=== PATIENT | male | born 1990 | race Caucasian/White ===

== ENCOUNTER → 2020-05-18 | Outpatient (CLI) | payer OTHER | END | disposition home or self-care (01) | LOC: LABWHC1 15:20 | PROVIDERS: ATTEND Internal Medicine | DX: Z53.9 Procedure and treatment not carried out, unspecified reason (principal) ==

== ENCOUNTER 2020-07-22 02:00 | Emergency (ER) | payer OTHER ==
[2020-07-22] MEDS ORDERED: ONDANSETRON 4 MG/2 ML VIAL IVP STA (02:22)
[2020-07-22] MEDS ORDERED: SODIUM CHLORIDE 0.9% 1,000 ML IV STA (02:22)
--- NOTE | 2020-07-22 02:23 | ED ---
Arrhythmia/Palpitations HPI - General Chief Complaint: Arrhythmia/Palpitations Stated Complaint: Chest pain Time Seen by Provider: 07/22/20 02:12 Source: patient, EMS Mode of arrival: EMS - History of Present Illness Initial Comments: This patient is a 30-year-old man who presents to be evaluated for constellation of symptoms that he awoke with tonight. Patient states that he felt like his usual self when he had gone to sleep tonight. The patient notes that he had been having a nightmare and woke with feeling of shortness of breath, nausea, and racing heart. He states that he has history of LVH and therefore felt he should be evaluated. Patient called for ambulance transport was given Zofran on the right here but states the nausea is coming back a little bit. Patient denies chest pain. He states that his breathing is improving but not quite back to normal yet. MD Complaint: palpitations -: minutes(s) Context: awoke with symptoms Associated Symptoms: shortness of breath, nausea/vomiting, anxiety - Related Data Previous Rx's Medication Instructions Recorded Ondansetron Odt [Zofran ODT] 4 mg PO Q8HR PRN #10 tab 07/22/20 Allergies Allergy/AdvReac Type Severity Reaction Status Date / Time No Known Allergies Allergy Verified 07/22/20 02:07 Review of Systems ROS Statement: Those systems with pertinent positive or pertinent negative responses have been documented in the HPI. ROS Other: All systems not noted in ROS Statement are negative. Constitutional: Denies: fever, chills, weakness Eyes: Denies: vision change Respiratory: Reports: as per HPI, dyspnea. Denies: cough Cardiovascular: Reports: palpitations. Denies: chest pain, orthopnea, edema, syncope Gastrointestinal: Reports: nausea. Denies: abdominal pain, vomiting, diarrhea Genitourinary: Denies: dysuria, hematuria Musculoskeletal: Denies: back pain Skin: Denies: rash Neurological: Denies: headache, weakness, numbness Psychiatric: Reports: anxiety Past Medical History Past Medical History: Hypertension, Supraventricular Tachycardia (SVT) Additional Past Medical History / Comment(s): Left ventricular hypertrophy History of Any Multi-Drug Resistant Organisms: None Reported Past Surgical History: Orthopedic Surgery Additional Past Surgical History / Comment(s): gastric sleeve Past Psychological History: Anxiety, Depression Smoking Status: Never smoker Past Alcohol Use History: Occasional Past Drug Use History: None Reported General Exam General appearance: alert, anxious Head exam: Present: atraumatic, normocephalic Eye exam: Present: normal appearance. Absent: scleral icterus, conjunctival injection ENT exam: Present: mucous membranes dry Neck exam: Present: normal inspection, full ROM Respiratory exam: Present: normal lung sounds bilaterally. Absent: respiratory distress, wheezes, rales, rhonchi, stridor Cardiovascular Exam: Present: regular rate, normal rhythm, normal heart sounds. Absent: systolic murmur, diastolic murmur, rubs, gallop GI/Abdominal exam: Present: soft. Absent: distended, tenderness, guarding, rebound, rigid, mass Extremities exam: Present: normal inspection, normal capillary refill. Absent: pedal edema, calf tenderness Back exam: Present: normal inspection. Absent: CVA tenderness (R), CVA tenderness (L) Neurological exam: Present: alert Skin exam: Present: warm, dry, intact, normal color. Absent: rash Course Vital Signs 07/22/20 07/22/20 02:01 03:00 Temperature 97.6 F Pulse Rate 67 61 Respiratory 18 19 Rate Blood Pressure 179/117 132/104 O2 Sat by Pulse 100 98 Oximetry EKG Findings - EKG Results: EKG: interpreted by AMEYA CHRISTIAN, sinus rhythm (Rate 61 bpm), normal axis, normal QRS, normal ST/T, no acute changes - KS, Pacemaker, Normal: Normal tracing: normal tracing Medical Decision Making - Lab Data Result diagrams: 07/22/20 02:34 07/22/20 02:34 Lab Results 07/22/20 07/22/20 07/22/20 Range/Units 02:34 02:34 02:34 WBC 8.1 (3.8-10.6) k/uL RBC 6.18 H (4.30-5.90) m/uL Hgb 15.6 (13.0-17.5) gm/dL Hct 48.8 (39.0-53.0) % MCV 79.0 L (80.0-100.0) fL MCH 25.2 (25.0-35.0) pg MCHC 31.9 (31.0-37.0) g/dL RDW 13.7 (11.5-15.5) % Plt Count 345 (150-450) k/uL Neutrophils % 54 % Lymphocytes % 33 % Monocytes % 6 % Eosinophils % 3 % Basophils % 1 % Neutrophils # 4.3 (1.3-7.7) k/uL Lymphocytes # 2.7 (1.0-4.8) k/uL Monocytes # 0.5 (0-1.0) k/uL Eosinophils # 0.3 (0-0.7) k/uL Basophils # 0.1 (0-0.2) k/uL PT 10.5 (9.0-12.0) sec INR 1.0 (<1.2) APTT 25.0 (22.0-30.0) sec D-Dimer 0.19 (<0.60) mg/L FEU Sodium 138 (137-145) mmol/L Potassium 3.7 (3.5-5.1) mmol/L Chloride 103 (98-107) mmol/L Carbon Dioxide 27 (22-30) mmol/L Anion Gap 8 mmol/L BUN 19 (9-20) mg/dL Creatinine 1.16 (0.66-1.25) mg/dL Est GFR (CKD-EPI)AfAm >90 (>60 ml/min/1.73 sqM) Est GFR (CKD-EPI)NonAf 85 (>60 ml/min/1.73 sqM) Glucose 142 H (74-99) mg/dL Calcium 9.2 (8.4-10.2) mg/dL Magnesium 2.0 (1.6-2.3) mg/dL Total Bilirubin 0.7 (0.2-1.3) mg/dL AST 34 (17-59) U/L ALT 25 (4-49) U/L Alkaline Phosphatase 62 (38-126) U/L Troponin I (0.000-0.034) ng/mL Total Protein 7.1 (6.3-8.2) g/dL Albumin 4.4 (3.5-5.0) g/dL TSH 1.880 (0.465-4.680) mIU/L 07/22/20 Range/Units 02:34 WBC (3.8-10.6) k/uL RBC (4.30-5.90) m/uL Hgb (13.0-17.5) gm/dL Hct (39.0-53.0) % MCV (80.0-100.0) fL MCH (25.0-35.0) pg MCHC (31.0-37.0) g/dL RDW (11.5-15.5) % Plt Count (150-450) k/uL Neutrophils % % Lymphocytes % % Monocytes % % Eosinophils % % Basophils % % Neutrophils # (1.3-7.7) k/uL Lymphocytes # (1.0-4.8) k/uL Monocytes # (0-1.0) k/uL Eosinophils # (0-0.7) k/uL Basophils # (0-0.2) k/uL PT (9.0-12.0) sec INR (<1.2) APTT (22.0-30.0) sec D-Dimer (<0.60) mg/L FEU Sodium (137-145) mmol/L Potassium (3.5-5.1) mmol/L Chloride (98-107) mmol/L Carbon Dioxide (22-30) mmol/L Anion Gap mmol/L BUN (9-20) mg/dL Creatinine (0.66-1.25) mg/dL Est GFR (CKD-EPI)AfAm (>60 ml/min/1.73 sqM) Est GFR (CKD-EPI)NonAf (>60 ml/min/1.73 sqM) Glucose (74-99) mg/dL Calcium (8.4-10.2) mg/dL Magnesium (1.6-2.3) mg/dL Total Bilirubin (0.2-1.3) mg/dL AST (17-59) U/L ALT (4-49) U/L Alkaline Phosphatase (38-126) U/L Troponin I <0.012 (0.000-0.034) ng/mL Total Protein (6.3-8.2) g/dL Albumin (3.5-5.0) g/dL TSH (0.465-4.680) mIU/L Disposition Clinical Impression: Palpitations Disposition: HOME SELF-CARE Condition: Good Instructions (If sedation given, give patient instructions): Heart Palpitations (ED) Prescriptions: Ondansetron Odt [Zofran ODT] 4 mg PO Q8HR PRN #10 tab PRN Reason: Nausea Is patient prescribed a controlled substance at d/c from ED?: No Referrals: None,Stated [Primary Care Provider] - 1-2 days Peña Singh MD [STAFF PHYSICIAN] - 1-2 days
[2020-07-22] MEDS ORDERED: LORazepam 2 MG/ML INJ IV STA (02:28)
[2020-07-22] MEDS ORDERED: LABETALOL 5 MG/ML VIAL MDV IVP STA (02:28)
[2020-07-22 03:10] LABS: Basophils # (A) 0.1 k/uL (0-0.2); Basophils % (A) 1 %; Eosinophils # (A) 0.3 k/uL (0-0.7); Eosinophils % (A) 3 %; HCT 48.8 % (39.0-53.0); HGB 15.6 gm/dL (13.0-17.5); Lymphocytes # (A) 2.7 k/uL (1.0-4.8); Lymphocytes % (A) 33 %; MCH 25.2 pg (25.0-35.0); MCHC 31.9 g/dL (31.0-37.0); Mean Platelet Volume 6.4; Monocytes # (A) 0.5 k/uL (0-1.0); Monocytes % (A) 6 %; Neutrophils # (A) 4.3 k/uL (1.3-7.7); Neutrophils % (A) 54 %; Platelet Count 345 k/uL (150-450); RBC 6.18 m/uL (4.30-5.90); RDW 13.7 % (11.5-15.5); WBC 8.1 k/uL (3.8-10.6)
--- NOTE | 2020-07-22 03:30 | XR ---
EXAMINATION TYPE: XR chest 2V DATE OF EXAM: 07/22/2020 COMPARISON: NONE HISTORY: Dysrhythmia TECHNIQUE: FINDINGS: Heart is normal. Lungs are clear. Diaphragm is normal. Bony thorax appears normal. There ar e chest leads. Pulmonary vascularity is normal. IMPRESSION: Normal chest
[2020-07-22 03:31] LABS: D-Dimer 0.19 mg/L FEU (<0.60); Prothrombin Time 10.5 sec (9.0-12.0)
[2020-07-22 03:35] LABS: ALT 25 U/L (4-49); AST 34 U/L (17-59); African American GFR (CKD) >90 (>60 ml/min/1.73 sqM); Albumin 4.4 g/dL (3.5-5.0); Alkaline Phosphatase 62 U/L (38-126); Anion Gap 8 mmol/L; Blood Urea Nitrogen 19 mg/dL (9-20); Calcium 9.2 mg/dL (8.4-10.2); Carbon Dioxide 27 mmol/L (22-30); Chloride 103 mmol/L (98-107); Glucose 142 mg/dL (74-99); Non-African American GFR(CKD) 85 (>60 ml/min/1.73 sqM); Potassium 3.7 mmol/L (3.5-5.1); Sodium 138 mmol/L (137-145); Total Bilirubin 0.7 mg/dL (0.2-1.3); Total Protein 7.1 g/dL (6.3-8.2)
[2020-07-22] MEDS ORDERED: ONDANSETRON 4 MG ODT STARTER PACK 2 TAB BTL PO STA (04:40)
[2020-07-22 05:09] VITALS: RESP 18
[2020-07-22 05:13] VITALS: BP 126/82; PULSE 67; TEMP 98.1
== END 2020-07-22 04:54 | disposition home or self-care (01) ==
LOC: EC 02:00
DX: R00.2 Palpitations (principal); R06.02 Shortness of breath; R11.0 Nausea
CPT/HCPCS: 36415; 71046; 80053; 83735; 84443; 84484; 85025; 85379; 85610; 85730; 93005; 96361; 96374; 96375; 99285

== ENCOUNTER → 2020-08-18 | Outpatient (CLI) | payer OTHER ==
--- NOTE | 2020-08-18 13:10 | US ---
EXAMINATION TYPE: US abdomen complete DATE OF EXAM: 08/18/2020 COMPARISON: NONE CLINICAL HISTORY: I10 Essential hypertension. EXAM MEASUREMENTS: Liver Length: 15.9 cm Gallbladder Wall: 0.2 cm CBD: 0.4 cm Spleen: 11.0 cm Right Kidney: 10.4 x 4.0 x 5.1 cm Left Kidney: 9.4 x 5.4 x 5.9 cm Pancreas: Normal Liver: Normal Gallbladder: Normal Dry Transfer Worker reports negative sonographic Fermin sign CBD: Normal Spleen: Normal Right Kidney: Normal Left Kidney: No hydronephrosis. 4 mm nonshadowing echogenic foci Upper IVC: Normal Abd Aorta: Normal IMPRESSION: 1. Left kidney 4 mm focus may represent echogenic renal sinus fat versus nonshadowing calculus. No hy dronephrosis. 2. Otherwise unremarkable abdominal ultrasound.
== END | disposition home or self-care (01) ==
LOC: RADUSWWP 08:59
PROVIDERS: ATTEND Family Medicine
DX: R93.422 Abnormal radiologic findings on diagnostic imaging of left kidney (principal); I10 Essential (primary) hypertension
CPT/HCPCS: 76700

== ENCOUNTER 2020-10-20 06:37 | Emergency (ER) | payer OTHER ==
[2020-10-20 06:46] VITALS: TEMP 98.7
--- NOTE | 2020-10-20 06:59 | ED ---
General Adult HPI - General Chief complaint: Arrhythmia/Palpitations Stated complaint: Dizziness Time Seen by Provider: 10/20/20 06:46 Source: EMS, RN notes reviewed Mode of arrival: EMS Limitations: no limitations - History of Present Illness Initial comments: 30-year-old male with a past medical history of HTN, SVT, LVH presents to the emergency room for possible SVT episode. Patient reports he was just about to fall asleep and he felt himself not breathing and jumped up. Patient states his heart started to race and he felt a little short of breath. Patient states his head felt tight. He states he has felt this way many times before and cont ributes this to his SVT. However this lasted longer than normal. He called 911. Once the ambulance arrived he started to feel better and he felt his heart rate go down. Patient feels much better at this time.Patient has no other complaints at this time including shortness of breath, chest pain, abdominal pain, nausea or vomiting, or visual changes. - Related Data Previous Rx's Medication Instructions Recorded Ondansetron Odt [Zofran ODT] 4 mg PO Q8HR PRN #10 tab 07/22/20 Allergies Allergy/AdvReac Type Severity Reaction Status Date / Time No Known Allergies Allergy Verified 07/22/20 02:07 Review of Systems ROS Statement: Those systems with pertinent positive or pertinent negative responses have been documented in the HPI. ROS Other: All systems not noted in ROS Statement are negative. Past Medical History Past Medical History: Hypertension, Sleep Apnea/CPAP/BIPAP, Supraventricular Tachycardia (SVT) Additional Past Medical History / Comment(s): Left ventricular hypertrophy History of Any Multi-Drug Resistant Organisms: None Reported Past Surgical History: Orthopedic Surgery Additional Past Surgical History / Comment(s): gastric sleeve Past Psychological History: Anxiety, Depression Smoking Status: Never smoker Past Alcohol Use History: Occasional Past Drug Use History: None Reported General Exam Limitations: no limitations General appearance: alert, in no apparent distress Head exam: Present: atraumatic, normocephalic, normal inspection Eye exam: Present: normal appearance, PERRL, EOMI. Absent: scleral icterus, conjunctival injection, periorbital swelling ENT exam: Present: normal exam, mucous membranes moist Neck exam: Present: normal inspection, full ROM. Absent: tenderness, meningismus, lymphadenopathy Respiratory exam: Present: normal lung sounds bilaterally. Absent: respiratory distress, wheezes, rales, rhonchi, stridor Cardiovascular Exam: Present: regular rate, normal rhythm, normal heart sounds. Absent: systolic murmur, diastolic murmur, rubs, gallop, clicks GI/Abdominal exam: Present: soft, normal bowel sounds. Absent: distended, tenderness, guarding, rebound, rigid Neurological exam: Present: alert Course Vital Signs 10/20/20 06:39 Temperature 98.7 F Pulse Rate 70 Respiratory 19 Rate Blood Pressure 145/88 O2 Sat by Pulse 100 Oximetry EKG Findings - EKG Comments: EKG Findings:: Normal sinus rhythm, ventricular rate 63, ID interval 180, QTC 433 Medical Decision Making - Medical Decision Making Vitals are stable. Heart rate is normal mostly in the 60s. CBC CMP unremarkable. Magnesium 2.1. The patient, he is feeling at baseline. Patient will be discharged home to follow up with his doctor. He will continue taking his medication for SVT. He will return here for any worsening symptoms. I discussed this case with attending Dr. Robledo who agrees with this assessment and treatment plan. - Lab Data Result diagrams: 10/20/20 06:59 10/20/20 06:58 Lab Results 10/20/20 10/20/20 Range/Units 06:58 06:59 WBC 4.6 (3.8-10.6) k/uL RBC 5.16 (4.30-5.90) m/uL Hgb 13.9 (13.0-17.5) gm/dL Hct 40.8 (39.0-53.0) % MCV 79.0 L (80.0-100.0) fL MCH 27.0 (25.0-35.0) pg MCHC 34.2 (31.0-37.0) g/dL RDW 13.2 (11.5-15.5) % Plt Count 233 (150-450) k/uL MPV 6.3 Neutrophils % 50 % Lymphocytes % 37 % Monocytes % 5 % Eosinophils % 4 % Basophils % 1 % Neutrophils # 2.3 (1.3-7.7) k/uL Lymphocytes # 1.7 (1.0-4.8) k/uL Monocytes # 0.3 (0-1.0) k/uL Eosinophils # 0.2 (0-0.7) k/uL Basophils # 0.1 (0-0.2) k/uL Sodium 138 (137-145) mmol/L Potassium 3.6 (3.5-5.1) mmol/L Chloride 105 (98-107) mmol/L Carbon Dioxide 29 (22-30) mmol/L Anion Gap 4 mmol/L BUN 19 (9-20) mg/dL Creatinine 1.03 (0.66-1.25) mg/dL Est GFR (CKD-EPI)AfAm >90 (>60 ml/min/1.73 sqM) Est GFR (CKD-EPI)NonAf >90 (>60 ml/min/1.73 sqM) Glucose 136 H (74-99) mg/dL Calcium 8.9 (8.4-10.2) mg/dL Magnesium 2.1 (1.6-2.3) mg/dL Disposition Clinical Impression: Palpitations Disposition: HOME SELF-CARE Condition: Good Instructions (If sedation given, give patient instructions): Heart Palpitations (ED) Additional Instructions: Please follow up with primary care in 1-2 days. Continue to take your medications. If you have any worsening symptoms return to the emergency room. Is patient prescribed a controlled substance at d/c from ED?: No Referrals: Jael Paris MD [Primary Care Provider] - 1-2 days Time of Disposition: 08:07
[2020-10-20 07:09] LABS: Basophils # (A) 0.1 k/uL (0-0.2); Basophils % (A) 1 %; Eosinophils # (A) 0.2 k/uL (0-0.7); Eosinophils % (A) 4 %; HCT 40.8 % (39.0-53.0); HGB 13.9 gm/dL (13.0-17.5); Lymphocytes # (A) 1.7 k/uL (1.0-4.8); Lymphocytes % (A) 37 %; MCHC 34.2 g/dL (31.0-37.0); Mean Platelet Volume 6.3; Monocytes # (A) 0.3 k/uL (0-1.0); Monocytes % (A) 5 %; Neutrophils # (A) 2.3 k/uL (1.3-7.7); Neutrophils % (A) 50 %; Platelet Count 233 k/uL (150-450); RBC 5.16 m/uL (4.30-5.90); RDW 13.2 % (11.5-15.5); WBC 4.6 k/uL (3.8-10.6)
[2020-10-20 07:22] LABS: African American GFR (CKD) >90 (>60 ml/min/1.73 sqM); Anion Gap 4 mmol/L; Blood Urea Nitrogen 19 mg/dL (9-20); Calcium 8.9 mg/dL (8.4-10.2); Carbon Dioxide 29 mmol/L (22-30); Chloride 105 mmol/L (98-107); Glucose 136 mg/dL (74-99); Magnesium 2.1 mg/dL (1.6-2.3); Non-African American GFR(CKD) >90 (>60 ml/min/1.73 sqM); Potassium 3.6 mmol/L (3.5-5.1); Sodium 138 mmol/L (137-145)
--- NOTE | 2020-10-20 07:53 | XR ---
EXAMINATION TYPE: XR chest 1V portable DATE OF EXAM: 10/20/2020 COMPARISON: 07/22/2020 INDICATION: Cough TECHNIQUE: Single frontal view of the chest is obtained. FINDINGS: The heart size is normal. The pulmonary vasculature is normal. The lungs are clear. IMPRESSION: 1. No acute pulmonary process.
[2020-10-20 08:10] VITALS: BP 126/87; PULSE 65; RESP 18
== END 2020-10-20 08:14 | disposition home or self-care (01) ==
LOC: EC 06:37
DX: R00.2 Palpitations (principal); R06.02 Shortness of breath; G47.33 Obstructive sleep apnea (adult) (pediatric); Z99.89 Dependence on other enabling machines and devices
CPT/HCPCS: 36415; 71045; 80048; 83735; 85025; 93005; 99285

== ENCOUNTER 2020-10-21 15:21 | Emergency (ER) | payer OTHER ==
[2020-10-21 15:25] VITALS: BP 148/85; PULSE 60; RESP 18; TEMP 98
--- NOTE | 2020-10-21 16:30 | ED ---
Recheck HPI - General Chief Complaint: Recheck/Abnormal Lab/Rx Stated Complaint: refill bp medication Time Seen by Provider: 10/21/20 15:28 Source: patient Mode of arrival: ambulatory Limitations: no limitations - History of Present Illness Initial Comments: 30yo male with history of HTN, ventricular hypertrophy,SVT, RAMÓN presenting today for cc of out of medications pt states that his refill was done though delivery but he has been out for 3 days. pt states that he was here yesterdya for palpatations and thinks its secondary to being out of the medications for so long. pt states that he accidentally picked option for [facility] to delive the new RX and it wont arrive for another week. pt states he needs all 4 of his heart medications prescribed. pt states its making him anxious to not have the medications. remaining ROS (-). - Related Data Home Medications Medication Instructions Recorded Confirmed Losartan Potassium [Cozaar] 100 mg PO DAILY 10/21/20 10/21/20 Metoprolol Tartrate [Lopressor] 100 mg PO BID-W/MEALS 10/21/20 10/21/20 dilTIAZem HCL [Diltiazem HCl] 60 mg PO DAILY 10/21/20 10/21/20 hydroCHLOROthiazide [Hydrodiuril] 25 mg PO DAILY 10/21/20 10/21/20 Previous Rx's Medication Instructions Recorded Hydrochlorothiazide 25 mg PO DAILY 7 Days #14 capsule 10/21/20 [hydroCHLOROthiazide] Losartan Potassium [Cozaar] 100 mg PO DAILY 7 Days #7 tab 10/21/20 Metoprolol Tartrate [Lopressor] 100 mg PO BID-W/MEALS 7 Days #14 10/21/20 tablet dilTIAZem HCL [Diltiazem HCl] 60 mg PO DAILY 7 Days #7 tab 10/21/20 Allergies Allergy/AdvReac Type Severity Reaction Status Date / Time No Known Allergies Allergy Verified 10/21/20 16:11 Review of Systems ROS Statement: Those systems with pertinent positive or pertinent negative responses have been documented in the HPI. ROS Other: All systems not noted in ROS Statement are negative. Past Medical History Past Medical History: Hypertension, Sleep Apnea/CPAP/BIPAP, Supraventricular Tachycardia (SVT) Additional Past Medical History / Comment(s): Left ventricular hypertrophy History of Any Multi-Drug Resistant Organisms: None Reported Past Surgical History: Orthopedic Surgery Additional Past Surgical History / Comment(s): gastric sleeve Past Psychological History: Anxiety, Depression Smoking Status: Never smoker Past Alcohol Use History: Occasional Past Drug Use History: None Reported General Exam - General Exam Comments Initial Comments: General: The patient is awake and alert, in no distress, and does not appear acutely ill. Eye: Pupils are equal, round and reactive to light, extra-ocular movements are intact. No nystagmus. There is normal conjunctiva bilaterally. No signs of icterus. Cardiovascular: There is a regular rate and rhythm. No murmur, rub or gallop is appreciated. Respiratory: Lungs are clear to auscultation, respirations are non-labored, breath sounds are equal. No wheezes, stridor, rales, or rhonchi. Musculoskeletal: Normal ROM, no tenderness. Strength 5/5. Sensation intact. Radial and DP pulses equal bilaterally 2+. Neurological: A&O x 3. CN II-XII intact grossly, There are no obvious motor or sensory deficits. Coordination appears grossly intact. Speech is normal. Skin: Skin is warm and dry and no rashes or lesions are noted. Psychiatric: Cooperative, appropriate mood & affect, normal judgment. Limitations: no limitations Course Vital Signs 10/21/20 15:22 Temperature 98 F Pulse Rate 60 Respiratory 18 Rate Blood Pressure 148/85 O2 Sat by Pulse 99 Oximetry Medical Decision Making - Medical Decision Making No complaints. Here for medication refill, BP elevated moderate. patient has medicine consult by registered pharmacy technician. pt medications refilled x1 week. discussed case with Dr. Cardenas who is agreeable to care plan and discharge. Disposition Clinical Impression: Medication refill Disposition: HOME SELF-CARE Condition: Good Instructions (If sedation given, give patient instructions): Medicine Refill (ED) Additional Instructions: Please use medication as discussed. Please follow-up with family doctor in the next 2 days.. Please return to emergency room if the symptoms increase or worsen or for any other concerns. Prescriptions: Losartan Potassium [Cozaar] 100 mg PO DAILY 7 Days #7 tab dilTIAZem HCL [Diltiazem HCl] 60 mg PO DAILY 7 Days #7 tab Hydrochlorothiazide [hydroCHLOROthiazide] 25 mg PO DAILY 7 Days #14 capsule Metoprolol Tartrate [Lopressor] 100 mg PO BID-W/MEALS 7 Days #14 tablet Is patient prescribed a controlled substance at d/c from ED?: No Referrals: Jael Paris MD [Primary Care Provider] - 1-2 days Time of Disposition: 16:30
== END 2020-10-21 16:21 | disposition home or self-care (01) ==
LOC: EC 15:21
DX: Z76.0 Encounter for issue of repeat prescription (principal); I10 Essential (primary) hypertension; G47.33 Obstructive sleep apnea (adult) (pediatric); Z99.89 Dependence on other enabling machines and devices; Z79.899 Other long term (current) drug therapy
CPT/HCPCS: 99281

== ENCOUNTER 2021-02-25 01:01 | Emergency (ER) | payer OTHER ==
[2021-02-25] MEDS ORDERED: SODIUM CHLORIDE 0.9% 1,000 ML IV STA (01:30)
[2021-02-25 01:50] LABS: Basophils # (A) 0.1 k/uL (0-0.2); Basophils % (A) 1 %; Eosinophils # (A) 0.3 k/uL (0-0.7); Eosinophils % (A) 4 %; HCT 47.5 % (39.0-53.0); Lymphocytes # (A) 2.6 k/uL (1.0-4.8); Lymphocytes % (A) 36 %; MCH 26.6 pg (25.0-35.0); MCHC 33.6 g/dL (31.0-37.0); MCV 79.3 fL (80.0-100.0); Mean Platelet Volume 6.1; Monocytes # (A) 0.5 k/uL (0-1.0); Monocytes % (A) 8 %; Neutrophils # (A) 3.6 k/uL (1.3-7.7); Neutrophils % (A) 50 %; Platelet Count 280 k/uL (150-450); RDW 13.3 % (11.5-15.5); WBC 7.2 k/uL (3.8-10.6)
--- NOTE | 2021-02-25 01:51 | ED ---
Arrhythmia/Palpitations HPI - General Chief Complaint: Arrhythmia/Palpitations Stated Complaint: Chest Pain, SOB Time Seen by Provider: 02/25/21 01:16 Source: patient Mode of arrival: ambulatory Limitations: no limitations - History of Present Illness Initial Comments: 30 year-old male patient with past history significant for SVT and hypertension currently maintained on cardizem, metoprolol, lisinopril, and hydrochlorothiazide presents to the emergency department today for evaluation of palpitations and shortness of breath. Patient states he has been waking up from sleep, after having what he believes is an apneic episode, his heart will be racing. States it feels like he has a flopping in his chest and it feels like his heart wants to "give out". States he feels like his breathing is more shallow and he has a "feeling of impending doom". Patient states this occurred tonight, once two nights ago, and again two weeks ago. He does not currently follow with a home health care worker. Dr. Jael Paris manages his medications. Patient denies any recent rash, fever, chills, cough, abdominal pain, nausea, vomiting, diarrhea, constipation, back pain, numbness, tingling, dizziness, weakness, hematuria, dysuria, urinary urgency, urinary frequency, headache, visual changes, or any other complaints. - Related Data Home Medications Medication Instructions Recorded Confirmed Losartan Potassium [Cozaar] 100 mg PO DAILY 10/21/20 10/21/20 Metoprolol Tartrate [Lopressor] 100 mg PO BID-W/MEALS 10/21/20 10/21/20 dilTIAZem HCL [Diltiazem HCl] 60 mg PO DAILY 10/21/20 10/21/20 hydroCHLOROthiazide [Hydrodiuril] 25 mg PO DAILY 10/21/20 10/21/20 Previous Rx's Medication Instructions Recorded Hydrochlorothiazide 25 mg PO DAILY 7 Days #14 capsule 10/21/20 [hydroCHLOROthiazide] Losartan Potassium [Cozaar] 100 mg PO DAILY 7 Days #7 tab 10/21/20 Metoprolol Tartrate [Lopressor] 100 mg PO BID-W/MEALS 7 Days #14 10/21/20 tablet dilTIAZem HCL [Diltiazem HCl] 60 mg PO DAILY 7 Days #7 tab 10/21/20 Allergies Allergy/AdvReac Type Severity Reaction Status Date / Time No Known Allergies Allergy Verified 02/25/21 01:10 Review of Systems ROS Statement: Those systems with pertinent positive or pertinent negative responses have been documented in the HPI. ROS Other: All systems not noted in ROS Statement are negative. Past Medical History Past Medical History: Hypertension, Sleep Apnea/CPAP/BIPAP, Supraventricular Tachycardia (SVT) Additional Past Medical History / Comment(s): Left ventricular hypertrophy History of Any Multi-Drug Resistant Organisms: None Reported Past Surgical History: Orthopedic Surgery Additional Past Surgical History / Comment(s): gastric sleeve 2018 Past Psychological History: Anxiety, Depression Smoking Status: Never smoker Past Alcohol Use History: Occasional Past Drug Use History: None Reported General Exam Limitations: no limitations General appearance: alert, in no apparent distress, other (Physical well- developed, well-nourished adult male patient in no acute distress. Vital signs upon presentation temperature 98.3F, pulse 66, respirations 18, blood pressure 135/85, pulse ox 100% on room air.) Eye exam: Present: normal appearance, PERRL, EOMI. Absent: scleral icterus, conjunctival injection, periorbital swelling ENT exam: Present: normal exam, normal oropharynx Respiratory exam: Present: normal lung sounds bilaterally. Absent: respiratory distress, wheezes, rales, rhonchi, stridor Cardiovascular Exam: Present: regular rate, normal rhythm, normal heart sounds. Absent: systolic murmur, diastolic murmur, rubs, gallop, clicks GI/Abdominal exam: Present: soft, normal bowel sounds. Absent: distended, tenderness, guarding, rebound, rigid Neurological exam: Present: alert, oriented X3, CN II-XII intact Psychiatric exam: Present: normal affect, normal mood Skin exam: Present: warm, dry, intact, normal color. Absent: rash Course Vital Signs 02/25/21 02/25/21 01:04 02:10 Temperature 98.3 F Pulse Rate 66 57 L Respiratory 18 16 Rate Blood Pressure 135/85 130/84 O2 Sat by Pulse 100 97 Oximetry EKG Findings - EKG Comments: EKG Findings:: EKG obtained at 11 08 shows sinus bradycardia ventricular 58, ME interval 202, QRS duration 100, QTC 416, QTC 408. No evidence of ST elevation or depression. Medical Decision Making - Medical Decision Making 30 year-old male patient with history of hypertension and SVT presents to the emergency department for evaluation of palpitations and shortness of breath. Physical examination is unremarkable. Patient remains sinus bradycardia on the heart monitor. EKG showed sinus bradycardia. He did have early repoll, troponin is negative. Labs reviewed and are unremarkable. Upon reevaluation is resting comfortably in bed, denies any further episodes. He'll be discharged follow-up with his primary care physician on Saturday. He is urged to discuss sleep study, heart monitoring, and follow up with cardiology. Return parameters discussed in detail. He verbalizes understanding and agrees with this plan. Case discussed with my attending Dr. Brewer. - Lab Data Result diagrams: 02/25/21 01:35 02/25/21 01:35 Lab Results 02/25/21 02/25/21 02/25/21 Range/Units 01:35 01:35 01:35 WBC 7.2 (3.8-10.6) k/uL RBC 6.00 H (4.30-5.90) m/uL Hgb 16.0 (13.0-17.5) gm/dL Hct 47.5 (39.0-53.0) % MCV 79.3 L (80.0-100.0) fL MCH 26.6 (25.0-35.0) pg MCHC 33.6 (31.0-37.0) g/dL RDW 13.3 (11.5-15.5) % Plt Count 280 (150-450) k/uL MPV 6.1 Neutrophils % 50 % Lymphocytes % 36 % Monocytes % 8 % Eosinophils % 4 % Basophils % 1 % Neutrophils # 3.6 (1.3-7.7) k/uL Lymphocytes # 2.6 (1.0-4.8) k/uL Monocytes # 0.5 (0-1.0) k/uL Eosinophils # 0.3 (0-0.7) k/uL Basophils # 0.1 (0-0.2) k/uL PT 11.0 (9.0-12.0) sec INR 1.0 (<1.2) APTT 23.8 (22.0-30.0) sec Sodium 140 (137-145) mmol/L Potassium 3.8 (3.5-5.1) mmol/L Chloride 103 (98-107) mmol/L Carbon Dioxide 29 (22-30) mmol/L Anion Gap 8 mmol/L BUN 19 (9-20) mg/dL Creatinine 1.23 (0.66-1.25) mg/dL Est GFR (CKD-EPI)AfAm >90 (>60 ml/min/1.73 sqM) Est GFR (CKD-EPI)NonAf 79 (>60 ml/min/1.73 sqM) Glucose 105 H (74-99) mg/dL Calcium 9.5 (8.4-10.2) mg/dL Magnesium 2.0 (1.6-2.3) mg/dL Total Bilirubin 0.8 (0.2-1.3) mg/dL AST 28 (17-59) U/L ALT 21 (4-49) U/L Alkaline Phosphatase 54 (38-126) U/L Troponin I (0.000-0.034) ng/mL Total Protein 7.0 (6.3-8.2) g/dL Albumin 4.3 (3.5-5.0) g/dL TSH 2.350 (0.465-4.680) mIU/L 02/25/21 Range/Units 01:35 WBC (3.8-10.6) k/uL RBC (4.30-5.90) m/uL Hgb (13.0-17.5) gm/dL Hct (39.0-53.0) % MCV (80.0-100.0) fL MCH (25.0-35.0) pg MCHC (31.0-37.0) g/dL RDW (11.5-15.5) % Plt Count (150-450) k/uL MPV Neutrophils % % Lymphocytes % % Monocytes % % Eosinophils % % Basophils % % Neutrophils # (1.3-7.7) k/uL Lymphocytes # (1.0-4.8) k/uL Monocytes # (0-1.0) k/uL Eosinophils # (0-0.7) k/uL Basophils # (0-0.2) k/uL PT (9.0-12.0) sec INR (<1.2) APTT (22.0-30.0) sec Sodium (137-145) mmol/L Potassium (3.5-5.1) mmol/L Chloride (98-107) mmol/L Carbon Dioxide (22-30) mmol/L Anion Gap mmol/L BUN (9-20) mg/dL Creatinine (0.66-1.25) mg/dL Est GFR (CKD-EPI)AfAm (>60 ml/min/1.73 sqM) Est GFR (CKD-EPI)NonAf (>60 ml/min/1.73 sqM) Glucose (74-99) mg/dL Calcium (8.4-10.2) mg/dL Magnesium (1.6-2.3) mg/dL Total Bilirubin (0.2-1.3) mg/dL AST (17-59) U/L ALT (4-49) U/L Alkaline Phosphatase (38-126) U/L Troponin I <0.012 (0.000-0.034) ng/mL Total Protein (6.3-8.2) g/dL Albumin (3.5-5.0) g/dL TSH (0.465-4.680) mIU/L - Radiology Data Radiology results: report reviewed, image reviewed Two-view x-ray of the chest is obtained. Report was reviewed in its entirety. Impression by Dr. Vasquez shows no acute findings show substantial change. Disposition Clinical Impression: Palpitations Disposition: HOME SELF-CARE Condition: Good Instructions (If sedation given, give patient instructions): Heart Palpitations (ED) Additional Instructions: Follow up with your Primary Care Physician on Saturday. Discuss sleep study, heart monitor, and referral to cardiology. Return to the emergency department for any new, worsening, or concerning symptoms. Is patient prescribed a controlled substance at d/c from ED?: No Referrals: Jael Paris MD [Primary Care Provider] - 1-2 days Peña Singh MD [STAFF PHYSICIAN] - 1-2 days Time of Disposition: 02:58
--- NOTE | 2021-02-25 01:53 | XR ---
EXAM: XR Chest, 2 Views CLINICAL HISTORY: dysrhythmia TECHNIQUE: Frontal and lateral views of the chest. COMPARISON: 10/20/20 FINDINGS: Lungs: Clear. Pleural space: Unremarkable. No pneumothorax. Heart: Unremarkable. No cardiomegaly. Mediastinum: Prominent main pulmonary artery contour, may suggest pulmonary hypertension. Bones/joints: No acute findings. IMPRESSION: No acute findings or substantial change.
[2021-02-25 01:59] LABS: ALT 21 U/L (4-49); AST 28 U/L (17-59); African American GFR (CKD) >90 (>60 ml/min/1.73 sqM); Albumin 4.3 g/dL (3.5-5.0); Alkaline Phosphatase 54 U/L (38-126); Anion Gap 8 mmol/L; Blood Urea Nitrogen 19 mg/dL (9-20); Calcium 9.5 mg/dL (8.4-10.2); Carbon Dioxide 29 mmol/L (22-30); Chloride 103 mmol/L (98-107); Glucose 105 mg/dL (74-99); Non-African American GFR(CKD) 79 (>60 ml/min/1.73 sqM); Potassium 3.8 mmol/L (3.5-5.1); Sodium 140 mmol/L (137-145); Total Bilirubin 0.8 mg/dL (0.2-1.3)
[2021-02-25 02:00] LABS: Partial Thromboplastin Time 23.8 sec (22.0-30.0)
[2021-02-25 02:11] VITALS: PULSE 57
[2021-02-25 03:11] VITALS: BP 133/88; RESP 18; TEMP 97.4
== END 2021-02-25 03:11 | disposition home or self-care (01) ==
LOC: EC 01:01
DX: R00.2 Palpitations (principal); R06.02 Shortness of breath; R07.9 Chest pain, unspecified; I11.9 Hypertensive heart disease without heart failure; G47.30 Sleep apnea, unspecified; F41.9 Anxiety disorder, unspecified; F32.9 Major depressive disorder, single episode, unspecified; Z79.899 Other long term (current) drug therapy
CPT/HCPCS: 36415; 71046; 80053; 83735; 84443; 84484; 85025; 85610; 85730; 93005; 96360; 99285

== ENCOUNTER 2021-04-27 00:14 | Emergency (ER) | payer OTHER ==
[2021-04-27 00:22] VITALS: BP 130/85; PULSE 88; RESP 18; TEMP 99.5
[2021-04-27] MEDS ORDERED: PROCHLORPERAZINE INJ 10 MG/2 ML VIAL IM STA (00:24)
[2021-04-27] MEDS ORDERED: ONDANSETRON 4 MG ODT STARTER PACK 2 TAB BTL PO STA (00:24)
[2021-04-27] MEDS ORDERED: SODIUM CHLORIDE 0.9% 1,000 ML IV STA ×2 (00:29)
[2021-04-27] MEDS ORDERED: SODIUM CHLORIDE 0.9% 500 ML 500 ML IV STA (00:29)
[2021-04-27] MEDS ORDERED: DIAZEPAM 5 MG/ML 2 ML INJ IVP STA (00:30)
[2021-04-27] MEDS ORDERED: PROCHLORPERAZINE INJ 10 MG/2 ML VIAL IVP STA (00:30)
[2021-04-27] MEDS ORDERED: PANTOPRAZOLE 40 MG/10 ML VIAL IVP STA (00:30)
--- NOTE | 2021-04-27 00:31 | ED ---
Nausea/Vomiting/Diarrhea HPI - General Chief complaint: Nausea/Vomiting/Diarrhea Stated complaint: Diarrhea Time Seen by Provider: 04/27/21 00:24 Source: patient Mode of arrival: ambulatory Limitations: no limitations - Related Data Home Medications Medication Instructions Recorded Confirmed Losartan Potassium [Cozaar] 100 mg PO DAILY 10/21/20 10/21/20 Metoprolol Tartrate [Lopressor] 100 mg PO BID-W/MEALS 10/21/20 10/21/20 dilTIAZem HCL [Diltiazem HCl] 60 mg PO DAILY 10/21/20 10/21/20 hydroCHLOROthiazide [Hydrodiuril] 25 mg PO DAILY 10/21/20 10/21/20 Previous Rx's Medication Instructions Recorded Hydrochlorothiazide 25 mg PO DAILY 7 Days #14 capsule 10/21/20 [hydroCHLOROthiazide] Losartan Potassium [Cozaar] 100 mg PO DAILY 7 Days #7 tab 10/21/20 Metoprolol Tartrate [Lopressor] 100 mg PO BID-W/MEALS 7 Days #14 10/21/20 tablet dilTIAZem HCL [Diltiazem HCl] 60 mg PO DAILY 7 Days #7 tab 10/21/20 Allergies Allergy/AdvReac Type Severity Reaction Status Date / Time No Known Allergies Allergy Verified 04/27/21 00:22 Review of Systems ROS Statement: Those systems with pertinent positive or pertinent negative responses have been documented in the HPI. ROS Other: All systems not noted in ROS Statement are negative. Past Medical History Past Medical History: Hypertension, Sleep Apnea/CPAP/BIPAP, Supraventricular Tachycardia (SVT) Additional Past Medical History / Comment(s): Left ventricular hypertrophy History of Any Multi-Drug Resistant Organisms: None Reported Past Surgical History: Orthopedic Surgery Additional Past Surgical History / Comment(s): gastric sleeve 2018 Past Psychological History: Anxiety, Depression Smoking Status: Never smoker Past Alcohol Use History: Occasional Past Drug Use History: None Reported General Exam Limitations: no limitations Course Vital Signs 04/27/21 00:18 Temperature 99.5 F Pulse Rate 88 Respiratory 18 Rate Blood Pressure 130/85 O2 Sat by Pulse 100 Oximetry Medical Decision Making - Lab Data Result diagrams: 04/27/21 00:38 04/27/21 00:38 Lab Results 04/27/21 04/27/21 04/27/21 Range/Units 00:38 00:38 00:38 WBC 7.7 (3.8-10.6) k/uL RBC 5.93 H (4.30-5.90) m/uL Hgb 15.6 (13.0-17.5) gm/dL Hct 47.7 (39.0-53.0) % MCV 80.5 (80.0-100.0) fL MCH 26.2 (25.0-35.0) pg MCHC 32.6 (31.0-37.0) g/dL RDW 14.0 (11.5-15.5) % Plt Count 239 (150-450) k/uL MPV 6.2 Neutrophils % 83 % Lymphocytes % 10 % Monocytes % 4 % Eosinophils % 2 % Basophils % 0 % Neutrophils # 6.4 (1.3-7.7) k/uL Lymphocytes # 0.8 L (1.0-4.8) k/uL Monocytes # 0.3 (0-1.0) k/uL Eosinophils # 0.2 (0-0.7) k/uL Basophils # 0.0 (0-0.2) k/uL Sodium 139 (137-145) mmol/L Potassium 3.6 (3.5-5.1) mmol/L Chloride 104 (98-107) mmol/L Carbon Dioxide 29 (22-30) mmol/L Anion Gap 6 mmol/L BUN 18 (9-20) mg/dL Creatinine 1.05 (0.66-1.25) mg/dL Est GFR (CKD-EPI)AfAm >90 (>60 ml/min/1.73 sqM) Est GFR (CKD-EPI)NonAf >90 (>60 ml/min/1.73 sqM) Glucose 98 (74-99) mg/dL Plasma Lactic Acid Morgan (0.7-2.0) mmol/L Calcium 8.6 (8.4-10.2) mg/dL Phosphorus 3.0 (2.5-4.5) mg/dL Magnesium 1.9 (1.6-2.3) mg/dL Total Bilirubin 1.1 (0.2-1.3) mg/dL AST 29 (17-59) U/L ALT 23 (4-49) U/L Alkaline Phosphatase 50 (38-126) U/L Creatine Kinase 187 H (55-170) U/L Troponin I (0.000-0.034) ng/mL Total Protein 6.8 (6.3-8.2) g/dL Albumin 4.2 (3.5-5.0) g/dL Lipase 38 (23-300) U/L Urine Color Yellow Urine Appearance Clear (Clear) Urine pH 5.5 (5.0-8.0) Ur Specific Chamberlain 1.021 (1.001-1.035) Urine Protein Negative (Negative) Urine Glucose (UA) Negative (Negative) Urine Ketones Negative (Negative) Urine Blood Negative (Negative) Urine Nitrite Negative (Negative) Urine Bilirubin Negative (Negative) Urine Urobilinogen <2.0 (<2.0) mg/dL Ur Leukocyte Esterase Negative (Negative) 04/27/21 04/27/21 Range/Units 00:38 00:38 WBC (3.8-10.6) k/uL RBC (4.30-5.90) m/uL Hgb (13.0-17.5) gm/dL Hct (39.0-53.0) % MCV (80.0-100.0) fL MCH (25.0-35.0) pg MCHC (31.0-37.0) g/dL RDW (11.5-15.5) % Plt Count (150-450) k/uL MPV Neutrophils % % Lymphocytes % % Monocytes % % Eosinophils % % Basophils % % Neutrophils # (1.3-7.7) k/uL Lymphocytes # (1.0-4.8) k/uL Monocytes # (0-1.0) k/uL Eosinophils # (0-0.7) k/uL Basophils # (0-0.2) k/uL Sodium (137-145) mmol/L Potassium (3.5-5.1) mmol/L Chloride (98-107) mmol/L Carbon Dioxide (22-30) mmol/L Anion Gap mmol/L BUN (9-20) mg/dL Creatinine (0.66-1.25) mg/dL Est GFR (CKD-EPI)AfAm (>60 ml/min/1.73 sqM) Est GFR (CKD-EPI)NonAf (>60 ml/min/1.73 sqM) Glucose (74-99) mg/dL Plasma Lactic Acid Morgan 1.6 (0.7-2.0) mmol/L Calcium (8.4-10.2) mg/dL Phosphorus (2.5-4.5) mg/dL Magnesium (1.6-2.3) mg/dL Total Bilirubin (0.2-1.3) mg/dL AST (17-59) U/L ALT (4-49) U/L Alkaline Phosphatase (38-126) U/L Creatine Kinase (55-170) U/L Troponin I <0.012 (0.000-0.034) ng/mL Total Protein (6.3-8.2) g/dL Albumin (3.5-5.0) g/dL Lipase (23-300) U/L Urine Color Urine Appearance (Clear) Urine pH (5.0-8.0) Ur Specific [place] (1.001-1.035) Urine Protein (Negative) Urine Glucose (UA) (Negative) Urine Ketones (Negative) Urine Blood (Negative) Urine Nitrite (Negative) Urine Bilirubin (Negative) Urine Urobilinogen (<2.0) mg/dL Ur Leukocyte Esterase (Negative) - EKG Data -: EKG Interpreted by Me (EKG is sinus rhythm 87, NE 190 QRS 90 QTC 459) Disposition Clinical Impression: Gastroenteritis Disposition: HOME SELF-CARE Condition: Good Instructions (If sedation given, give patient instructions): Acute Nausea and Vomiting (ED) Is patient prescribed a controlled substance at d/c from ED?: No Referrals: Jael Paris MD [Primary Care Provider] - 1-2 days
[2021-04-27 01:04] LABS: Basophils % (A) 0 %; Eosinophils # (A) 0.2 k/uL (0-0.7); Eosinophils % (A) 2 %; HCT 47.7 % (39.0-53.0); HGB 15.6 gm/dL (13.0-17.5); Lymphocytes # (A) 0.8 k/uL (1.0-4.8); Lymphocytes % (A) 10 %; MCH 26.2 pg (25.0-35.0); MCHC 32.6 g/dL (31.0-37.0); MCV 80.5 fL (80.0-100.0); Mean Platelet Volume 6.2; Monocytes # (A) 0.3 k/uL (0-1.0); Monocytes % (A) 4 %; Neutrophils # (A) 6.4 k/uL (1.3-7.7); Neutrophils % (A) 83 %; Platelet Count 239 k/uL (150-450); RBC 5.93 m/uL (4.30-5.90); WBC 7.7 k/uL (3.8-10.6)
[2021-04-27 01:11] LABS: Appearance,Urine Clear (Clear); Bilirubin,Urine Negative (Negative); Blood,Urine Negative (Negative); Color,Urine Yellow; Glucose,Urine (UA) Negative (Negative); Ketones,Urine Negative (Negative); Leukocyte Esterase,Urine Negative (Negative); Nitrite,Urine Negative (Negative); PH, Urine 5.5 (5.0-8.0); Protein,Urine Negative (Negative); Specific Gravity,Urine 1.021 (1.001-1.035); Urobilinogen,Urine <2.0 mg/dL (<2.0)
[2021-04-27 01:14] LABS: ALT 23 U/L (4-49); AST 29 U/L (17-59); African American GFR (CKD) >90 (>60 ml/min/1.73 sqM); Albumin 4.2 g/dL (3.5-5.0); Alkaline Phosphatase 50 U/L (38-126); Anion Gap 6 mmol/L; Blood Urea Nitrogen 18 mg/dL (9-20); Calcium 8.6 mg/dL (8.4-10.2); Carbon Dioxide 29 mmol/L (22-30); Chloride 104 mmol/L (98-107); Creatine Kinase 187 U/L (55-170); Glucose 98 mg/dL (74-99); Lipase 38 U/L (23-300); Magnesium 1.9 mg/dL (1.6-2.3); Non-African American GFR(CKD) >90 (>60 ml/min/1.73 sqM); Potassium 3.6 mmol/L (3.5-5.1); Sodium 139 mmol/L (137-145); Total Bilirubin 1.1 mg/dL (0.2-1.3); Total Protein 6.8 g/dL (6.3-8.2)
--- NOTE | 2021-04-27 01:18 | XR ---
EXAMINATION TYPE: XR chest 2V DATE OF EXAM: 04/27/2021 COMPARISON: 02/25/2021 HISTORY: Dysrhythmia TECHNIQUE: 2 views FINDINGS: Heart and mediastinum are normal. Lungs are clear. Diaphragm is normal. Bony thorax is inta ct. IMPRESSION: Normal chest. No change.
== END 2021-04-27 01:51 | disposition home or self-care (01) ==
LOC: EC 00:14
DX: K52.9 Noninfective gastroenteritis and colitis, unspecified (principal); I10 Essential (primary) hypertension; G47.33 Obstructive sleep apnea (adult) (pediatric); Z99.81 Dependence on supplemental oxygen; F32.9 Major depressive disorder, single episode, unspecified
CPT/HCPCS: 36415; 93005; 80053; 82550; 83605; 83690; 83735; 84100; 84443; 84484; 85025; 81003; 71046; 99284; 96374; 96375 ×2; 96361; J0780; J3360; S0119; C9113

== ENCOUNTER → 2023-03-19 | Outpatient (CLI) | payer OTHER ==
--- NOTE | 2023-03-25 15:28 | CT ---
EXAMINATION TYPE: CT angio chest DATE OF EXAM: 03/19/2023 COMPARISON: Prior outside CTA chest March 06, 2019 HISTORY: H/O THORACIC ANEURYSM CT DLP: 1285.7 mGycm. Automated Exposure Control for Dose Reduction was Utilized. CONTRAST: CTA scan of the thorax is performed without and with IV Contrast, patient injected with 100 mL of Iso terrence 370, aneurysm protocol. 3D reconstructed images are created on an independent workstation and re viewed. FINDINGS: LUNGS: There is 4 mm nodule superior right lower lobe at site of prior slightly larger groundglass no dule axial image 25. There is small focus of groundglass opacity in the anterior inferior left upper lobe measuring 1.6 cm axial image 30 abutting the fissure current study that is new from Prior. The 8 mm groundglass opacity in the anterior right mid lung is now not clearly seen. There is 4 mm calcifi ed nodule of benign granuloma in the periphery of the left lower lobe axial image 48. This is stable. MEDIASTINUM: Persistently enlarged main pulmonary artery suggesting underlying pulmonary artery hyper tension. Ascending aorta measures up to 4.3 cm at the main pulmonary artery axial image 62. Ascendin g aorta measures 4.6 cm in diameter at the aortic root coronal image 53. No aneurysmal extension into the descending aorta. Normal three-vessel origin redemonstrated. There are no greater than 1 cm hil ar or mediastinal lymph nodes. No cardiomegaly or pericardial effusion is seen. OTHER: Bilateral gynecomastia redemonstrated.. Subcutaneous edema noted. IMPRESSION: Stable ascending aortic aneurysm up to 4.6 cm on current study. There is new 1.6 cm focus of groundglass opacity in the anterior left midlung. Consider early or developing acute infiltrate. Correlate clinically.
== END | disposition home or self-care (01) ==
LOC: RADCTMAIN 15:14
PROVIDERS: ATTEND Internal Medicine
DX: I71.21 Aneurysm of the ascending aorta, without rupture (principal); R91.8 Other nonspecific abnormal finding of lung field
CPT/HCPCS: 71275; Q9967